=== PATIENT | female | born 1995 ===

== ENCOUNTER 2021-11-14 11:12 | Emergency (ER) | payer OTHER ==
[~2021-11-14] VITALS: Ht 165.1 cm; Wt 59.0 kg
[~2021-11-14 11:12] MED LIST: KEFLEX500 MG; PERCOCET 5-3251 EACH
== END 2021-11-14 18:50 | disposition home or self-care (01) ==
LOC: ER 11:12
DX: F41.9 Anxiety disorder, unspecified (principal)

== ENCOUNTER 2022-03-19 00:56 | Emergency (ER) | payer OTHER ==
[~2022-03-19] VITALS: Ht 157.5 cm; Wt 59.0 kg
== END 2022-03-19 11:57 | disposition home or self-care (01) ==
LOC: ER 00:56
DX: K29.00 Acute gastritis without bleeding (principal)